=== PATIENT | female | born 2000 | race Caucasian/White ===

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

== ENCOUNTER 2020-12-18 17:39 | Emergency (ER) | payer MEDICAID, OTHER ==
[~2020-12-18] VITALS: Ht 157.5 cm; Wt 116.6 kg
[2020-12-18 17:47] VITALS: BP 145/73
[2020-12-18] MEDS ORDERED: CEPH500T PO (18:33)
[2020-12-18] MEDS ORDERED: ACET-2619 PO (18:33)
[2020-12-18 18:53] VITALS: BP 145/73
== END 2020-12-18 18:53 | disposition home or self-care (01) ==
LOC: MED 17:39
DX: N39.0 Urinary tract infection, site not specified (principal); Z79.899 Other long term (current) drug therapy
CPT/HCPCS: 81002; 81025; 99283

== ENCOUNTER 2021-09-26 08:01 | Emergency (ER) | payer MEDICAID ==
[~2021-09-26] VITALS: Ht 160 cm; Wt 116.1 kg
[~2021-09-26 08:01] MED LIST: ACET-2619 PO; CEPH500T PO
[2021-09-26 08:02] VITALS: BP 139/91
--- NOTE | 2021-09-26 08:09 | NUR ---
PT AMB TO BED 12
--- NOTE | 2021-09-26 08:15 | NUR ---
20 y/o F BIB self from home c/o dysuria since this morning. Patient A&Ox4, ambulatory, states suprapubic pain x 1 week and woke up with dysuria this morning. Patient states no abdominal pain or suprapubic pain at this time. 0/10. Denies fever, chills, urinary symptoms, nausea, vomiting, diarrhea, constipation. Last BM: today, normal. Denies meds prior to arrival. Bed locked in lowest position, side rails x 1. States history of UTI symptoms, reports hydrating with cranberry juice + water throughout the day. PMH/Sx/Meds: Denies NKA
--- NOTE | 2021-09-26 08:21 | NUR ---
Dr. Mahmood is evaluating pt at bedside
[2021-09-26] MEDS ORDERED: cephALEXin 500 MG CAP PO ONE (08:25)
[2021-09-26] MEDS ORDERED: PHENAZOPYRIDINE 100 MG TAB PO ONE (08:25)
[2021-09-26] MEDS ORDERED: cephALEXin 500 MG CAP ONE (08:26)
[2021-09-26] MEDS ORDERED: PHENAZOPYRIDINE 100 MG TAB ONE (08:26)
[2021-09-26] MEDS ORDERED: CEPH-588 PO (08:28)
[2021-09-26] MEDS ORDERED: PYR100 PO (08:28)
[2021-09-26 08:42] LABS: APPEARANCE,URINE CLOUDY (CLEAR); BILIRUBIN,URINE NEGATIVE (NEGATIVE); BLOOD, URINE TRACE-I (NEGATIVE); COLOR,URINE YELLOW (YELLOW); LEUKOCYTE ESTERASE ,URINE 2+ (NEGATIVE); NITRITE, URINE NEGATIVE (NEGATIVE); UGLUCOSE NEGATIVE (NEGATIVE)
[2021-09-26 09:56] LABS: RBC,URINE 0-5 /HPF (0-5)
[2021-09-26 10:10] VITALS: BP 131/87
--- NOTE | 2021-09-26 10:15 | NUR ---
Patient discharged with v/s stable. Written and verbal after care instructions given and explained. Patient alert, oriented and verbalized understanding of instructions. Ambulatory with steady gait. All questions addressed prior to discharge. ID band removed. Patient advised to follow up with PMD. Rx of Keflex, Pyridium given. Patient educated on indication of medication including possible reaction and side effects. Opportunity to ask questions provided and answered.
== END 2021-09-26 10:15 | disposition home or self-care (01) ==
LOC: MED 08:01
DX: N39.0 Urinary tract infection, site not specified (principal); Z79.899 Other long term (current) drug therapy; Z79.2 Long term (current) use of antibiotics
CPT/HCPCS: 81001; 81025; 87086; 99283

== ENCOUNTER 2022-07-21 14:22 | Emergency (ER) | payer MEDICAID ==
[~2022-07-21] VITALS: Ht 157.5 cm; Wt 116.6 kg
[~2022-07-21 14:22] MED LIST changes: +CEPH-588 PO; +PYR100 PO
[2022-07-21 14:25] VITALS: BP 120/67
--- NOTE | 2022-07-21 14:44 | NUR ---
Patient being evaluated by HENRIETTA JENSEN at TRIAGE ROOM.
--- NOTE | 2022-07-21 14:45 | NUR ---
C/O 5/10 MID ABDOMINAL PAIN / BELLY BUTTON PAIN X TODAY.
[2022-07-21] MEDS ORDERED: CEPH-588 PO (14:58)
[2022-07-21] MEDS ORDERED: BACTO TP (14:58)
[2022-07-21 16:17] VITALS: BP 120/67
--- NOTE | 2022-07-21 16:17 | NUR ---
Patient discharged with v/s stable. Written and verbal after care instructions given and explained. Patient alert, oriented and verbalized understanding of instructions. Ambulatory with steady gait. All questions addressed prior to discharge. ID band removed. Patient advised to follow up with PMD. Rx of mupirocin, keflex (sent) given. Patient educated on indication of medication including possible reaction and side effects. Opportunity to ask questions provided and answered. work note given
== END 2022-07-21 16:17 | disposition home or self-care (01) ==
LOC: MED 14:22
DX: P38.9 Omphalitis without hemorrhage (principal)
CPT/HCPCS: 81002; 81025; 99283

== ENCOUNTER 2022-09-10 11:00 | Emergency (ER) | payer MEDICAID ==
[~2022-09-10] VITALS: Ht 157.5 cm; Wt 117.0 kg
[~2022-09-10 11:00] MED LIST changes: +BACTO TP
[2022-09-10 11:11] VITALS: BP 133/79
--- NOTE | 2022-09-10 11:14 | NUR ---
PT AMB TO BED 8.
--- NOTE | 2022-09-10 11:22 | NUR ---
21YO FEMALE PT C/O RUNNY NOSE AND SORE THROAT X3DAYS. REPORTS NEW ONSET xLASTNIGHT OF INTERMITTENT 5/10 R EARACHE W/ PAIN AT MOST WHEN BLOWING NOSE. THROAT AND EAR PRESENT CLEAR/PINK W/O SWELLING , NOTES MILD DIZZINESS -RINGING -DECREASE IN HEARING. STATES MILD RELIEF AFTER TAKING NIGHTQUIL . DENIES N/V/D, CHEST PAIN, SOB, FEVER , CHILLS OR ANYONE SICK AT HOME. PT AAOX4, HOB POSITIONED PER COMFORT. HX:DENIES NKA
[2022-09-10] MEDS ORDERED: IBUP-2213 PO (11:58)
[2022-09-10] MEDS ORDERED: BENZ-300 PO (11:58)
[2022-09-10] MEDS ORDERED: AMOX-999 PO (11:58)
--- NOTE | 2022-09-10 12:06 | NUR ---
Patient discharged with v/s stable. Written and verbal after care instructions FOR [employer] given and explained. Patient alert, oriented and verbalized understanding of instructions. Ambulatory with steady gait. All questions addressed prior to discharge. ID band removed. Patient advised to follow up with PMD. Rx of AMOXICILLIN, BENZOCAINE AND IBUPROFEN given. Opportunity to ask questions provided and answered.
--- NOTE | 2022-09-10 12:07 | NUR ---
The patient's care was reviewed and supervised by Sherrell Reed RN.
== END 2022-09-10 12:06 | disposition home or self-care (01) ==
LOC: MED 11:00
DX: J06.9 Acute upper respiratory infection, unspecified (principal); H66.91 Otitis media, unspecified, right ear
CPT/HCPCS: 99283

== ENCOUNTER 2023-02-07 20:38 | Emergency (ER) | payer MEDICAID ==
[~2023-02-07] VITALS: Ht 157.5 cm; Wt 112.0 kg
[~2023-02-07 20:38] MED LIST changes: +AMOX-999 PO; +BENZ-300 PO; +IBUP-2213 PO
[2023-02-07 21:06] VITALS: BP 114/68
--- NOTE | 2023-02-07 21:18 | NUR ---
PT TAKEN TO BED 8
--- NOTE | 2023-02-07 21:25 | NUR ---
22YR OLD FEMALE BIB SELF C/O RLQ ABD PAIN X TODAY. SHARP 7/10 PAIN. NON RADATING. PT DENIES CP OR SOB . STATES PAIN STARTED TODAY. DENIES V/D. PT IS A&OX4 . NKDA NO MED HX
--- NOTE | 2023-02-07 22:08 | NUR ---
CALL CENTER COORDINATOR AT BEDSIDE
--- NOTE | 2023-02-07 22:31 | NUR ---
Dr. Royal examining patient.
[2023-02-07 22:33] LABS: APPEARANCE,URINE CLEAR (CLEAR); BILIRUBIN,URINE 1+ (NEGATIVE); BLOOD, URINE NEGATIVE (NEGATIVE); COLOR,URINE YELLOW (YELLOW); LEUKOCYTE ESTERASE ,URINE NEGATIVE (NEGATIVE); NITRITE, URINE NEGATIVE (NEGATIVE); PH,URINE 5.5 (5.0-9.0); UGLUCOSE NEGATIVE (NEGATIVE)
--- NOTE | 2023-02-07 22:56 | NUR ---
PT TO CT
--- NOTE | 2023-02-07 22:56 | NUR ---
Juan reyes in [facility] - 02/07/23 at 2314 by MILADY PT TAKEN TO CT
--- NOTE | 2023-02-07 23:08 | NUR ---
PT BACK FROM CT
[2023-02-07 23:20] LABS: BASOPHILS # (AUTO) 0.1 K/uL (0.00-0.22); BASOPHILS % (AUTO) 0.5 % (0.0-2.0); EOSINOPHILS % (AUTO) 0.4 % (0.0-4.0); HEMOGLOBIN 13.4 g/dL (12.0-16.0); LYMPHOCYTES # (AUTO) 2.8 K/uL (2.5-16.5); LYMPHOCYTES % (AUTO) 24.8 % (20.5-51.1); MEAN CORPUSCULAR HEMOGLOBIN 29 pg (27-31); MEAN CORPUSCULAR HGB CONC 34 g/dL (33-37); MEAN CORPUSCULAR VOLUME 87.8 fL (80-94); MONOCYTES # (AUTO) 0.7 K/uL (0.8-1.0); MONOCYTES % (AUTO) 6.4 % (1.7-9.3); NEUTROPHILS # (AUTO) 7.7 K/uL (1.8-7.7); NEUTROPHILS % (AUTO) 67.9 % (42.2-75.2); PLATELET COUNT (AUTO) 407 K/uL (140-450); RED BLOOD CELL COUNT(AUTO) 4.55 MIL/uL (4.20-5.40); WHITE BLOOD COUNT (AUTO) 11.4 K/uL (4.8-10.8)
[2023-02-07 23:35] LABS: ALBUMIN 3.9 g/dL (3.4-5.0); ANION GAP 12.9 (8-16); CREATININE 0.8 mg/dL (0.6-1.3); POTASSIUM 3.9 mmol/L (3.5-5.1); TOTAL BILIRUBIN 0.7 mg/dL (0.0-1.0)
--- NOTE | 2023-02-08 00:08 | NUR ---
DR PRAJAPATI AT BEDSIDE
[2023-02-08] MEDS ORDERED: MAG355OR2 PO (00:24)
[2023-02-08] MEDS ORDERED: IBUP-1842 PO (00:24)
--- NOTE | 2023-02-08 00:30 | NUR ---
Patient discharged with v/s stable. Written and verbal after care instructions given and explained. Patient verbalized understanding. Ambulatory with steady gait. All questions addressed prior to discharge. Advised to follow up with PMD.
== END 2023-02-08 00:30 | disposition home or self-care (01) ==
LOC: MED 20:38
DX: R10.31 Right lower quadrant pain (principal)
CPT/HCPCS: 36415; 80053; 81003; 81025; 83690; 85025; 99284

== ENCOUNTER 2023-06-09 21:27 | Emergency (ER) | payer MEDICAID ==
[~2023-06-09] VITALS: Ht 157.5 cm; Wt 107.0 kg
[~2023-06-09 21:27] MED LIST changes: +IBUP-1842 PO; +MAG355OR2 PO
[2023-06-09 21:34] VITALS: BP 122/57; PULSE 90; RESP 16; TEMP 98.3; O2SAT 99
[2023-06-10] MEDS ORDERED: METR-435 PO (00:58)
[2023-06-10 01:00] VITALS: BP 120/60; PULSE 90; RESP 16; TEMP 98.4; O2SAT 99
== END 2023-06-10 01:00 | disposition home or self-care (01) ==
LOC: MED 21:27
DX: N76.0 Acute vaginitis (principal); B96.89 Other specified bacterial agents as the cause of diseases classified elsewhere; Z79.899 Other long term (current) drug therapy
CPT/HCPCS: 87210; 99281; 99283

== ENCOUNTER 2023-06-24 17:46 | Emergency (ER) | payer MEDICAID ==
[~2023-06-24] VITALS: Ht 157.5 cm; Wt 104.8 kg
[~2023-06-24 17:46] MED LIST changes: +METR-435 PO
[2023-06-24 17:54] VITALS: BP 122/73; PULSE 60; RESP 20; TEMP 97.5; O2SAT 100
[2023-06-24 18:42] LABS: BASOPHILS # (AUTO) 0.1 K/uL (0.00-0.22); BASOPHILS % (AUTO) 0.5 % (0.0-2.0); EOSINOPHILS # (AUTO) 0.1 K/uL (0-0.4); EOSINOPHILS % (AUTO) 1.2 % (0.0-4.0); HEMATOCRIT 41.4 % (36-48); HEMOGLOBIN 13.8 g/dL (12.0-16.0); LYMPHOCYTES % (AUTO) 27.1 % (20.5-51.1); MEAN CORPUSCULAR HEMOGLOBIN 30 pg (27-31); MEAN CORPUSCULAR HGB CONC 33 g/dL (33-37); MEAN CORPUSCULAR VOLUME 89.2 fL (80-94); MONOCYTES # (AUTO) 0.8 K/uL (0.8-1.0); MONOCYTES % (AUTO) 6.8 % (1.7-9.3); NEUTROPHILS # (AUTO) 7.2 K/uL (1.8-7.7); NEUTROPHILS % (AUTO) 64.4 % (42.2-75.2); PLATELET COUNT (AUTO) 388 K/uL (140-450); RED BLOOD CELL COUNT(AUTO) 4.64 MIL/uL (4.20-5.40); RED CELL DISTRIBUTION WIDTH 13.9 % (11.6-13.7); WHITE BLOOD COUNT (AUTO) 11.2 K/uL (4.8-10.8)
[2023-06-24 18:52] LABS: APPEARANCE,URINE CLEAR (CLEAR); BILIRUBIN,URINE NEGATIVE (NEGATIVE); BLOOD, URINE NEGATIVE (NEGATIVE); COLOR,URINE YELLOW (YELLOW); LEUKOCYTE ESTERASE ,URINE 1+ (NEGATIVE); NITRITE, URINE NEGATIVE (NEGATIVE); PROTEIN,URINE NEGATIVE (NEGATIVE); UGLUCOSE NEGATIVE (NEGATIVE); UROBILINOGEN,URINE 0.2 EU/dL (0.2 - 1)
[2023-06-24 19:09] LABS: ALBUMIN 3.9 g/dL (3.4-5.0); ANION GAP 13.4 (8-16); CARBON DIOXIDE 27.3 mmol/L (21-32); CREATININE 0.8 mg/dL (0.6-1.3); POTASSIUM 3.7 mmol/L (3.5-5.1); TOTAL BILIRUBIN 0.7 mg/dL (0.0-1.0); TOTAL PROTEIN, SERUM 8.3 g/dL (6.4-8.2)
[2023-06-24 19:09] LABS: BACTERIA,URINE 10-30 (MOD) /HPF (None Seen); RBC,URINE 0-5 /HPF (0-5); SQUAMOUS EPITHELIAL CELL,UR 4-10 (MOD) /LPF (0-3 (FEW))
[2023-06-24] MEDS ORDERED: ALUMINUM HYD/MAG/SIMETHICONE 30 ML UDC PO ONE (19:20)
[2023-06-24] MEDS ORDERED: FAMOTIDINE 20 MG TAB PO ONE (19:20)
[2023-06-24 19:39] VITALS: O2SAT 100
[2023-06-24] MEDS ORDERED: FAMO-90 PO (20:01)
[2023-06-24] MEDS ORDERED: ALUM355S5 PO (20:01)
[2023-06-24] MEDS ORDERED: SUCR1TAB35 PO (20:01)
== END 2023-06-24 20:23 | disposition home or self-care (01) ==
LOC: MED 17:46
DX: K29.70 Gastritis, unspecified, without bleeding (principal); Z79.899 Other long term (current) drug therapy
CPT/HCPCS: 36415; 76705; 80053; 81001; 81025; 83690; 85025; 87086; 99284; Q0092

== ENCOUNTER 2023-10-29 10:16 | Emergency (ER) | payer MEDICAID, OTHER ==
[~2023-10-29] VITALS: Ht 162.6 cm; Wt 90.7 kg
[~2023-10-29 10:16] MED LIST changes: +FAMO-90 PO; +MAG-43 PO; +SUCR1TAB35 PO
[2023-10-29 10:29] VITALS: BP 118/77; PULSE 84; RESP 18; TEMP 98; O2SAT 98
[2023-10-29 11:17] LABS: APPEARANCE,URINE CLEAR (CLEAR); BILIRUBIN,URINE NEGATIVE (NEGATIVE); BLOOD, URINE NEGATIVE (NEGATIVE); COLOR,URINE YELLOW (YELLOW); LEUKOCYTE ESTERASE ,URINE 1+ (NEGATIVE); NITRITE, URINE NEGATIVE (NEGATIVE); PROTEIN,URINE NEGATIVE (NEGATIVE); UGLUCOSE NEGATIVE (NEGATIVE); UROBILINOGEN,URINE 0.2 EU/dL (0.2 - 1)
[2023-10-29 11:24] LABS: BACTERIA,URINE FEW /HPF (None Seen); RBC,URINE 0-5 /HPF (0-5); SQUAMOUS EPITHELIAL CELL,UR 0-3 (FEW) /LPF (0-3 (FEW)); WBC,URINE 0-5 /HPF (0-5)
[2023-10-29] MEDS ORDERED: NITR50CA1 PO (11:37)
[2023-10-29] MEDS ORDERED: PHEN-1877 PO (11:37)
[2023-10-29 11:42] VITALS: BP 118/77; PULSE 84; RESP 18; TEMP 98; O2SAT 98
[2023-10-29] MEDS ORDERED: TRAM-748 PO ×2 (23:30→23:57)
[2023-10-29] MEDS ORDERED: ONDA-188 PO ×2 (23:30→23:57)
[2023-10-29] MEDS ORDERED: NAPR-54 PO ×2 (23:30→23:57)
== END 2023-10-29 11:42 | disposition home or self-care (01) ==
LOC: MED 10:16
DX: N30.00 Acute cystitis without hematuria (principal); Z79.899 Other long term (current) drug therapy; Z79.1 Long term (current) use of non-steroidal anti-inflammatories (NSAID); Z79.2 Long term (current) use of antibiotics
CPT/HCPCS: 81001; 81025; 87086; 87210; 87491; 99283

== ENCOUNTER 2023-10-29 21:24 | Emergency (ER) | payer OTHER ==
[~2023-10-29] VITALS: Ht 157.5 cm; Wt 104.3 kg
[~2023-10-29 21:24] MED LIST changes: +NITR50CA1 PO; +PHEN-1877 PO
[2023-10-29 21:49] VITALS: BP 100/67; PULSE 95; RESP 19; TEMP 97.9; O2SAT 99
[2023-10-29] MEDS ORDERED: KETOROLAC 30 MG/ML VIAL IM ONE (23:15)
[2023-10-29] MEDS ORDERED: NAPR-54 PO ×2 (23:30→23:57)
[2023-10-29] MEDS ORDERED: ONDA-188 PO ×2 (23:30→23:57)
[2023-10-29] MEDS ORDERED: TRAM-748 PO ×2 (23:30→23:57)
[2023-10-30 00:15] VITALS: BP 122/89; PULSE 93; RESP 18; TEMP 97.9; O2SAT 98
== END 2023-10-30 00:15 | disposition home or self-care (01) ==
LOC: MED 21:24
DX: R30.0 Dysuria (principal); Z79.899 Other long term (current) drug therapy; Z79.1 Long term (current) use of non-steroidal anti-inflammatories (NSAID); Z79.2 Long term (current) use of antibiotics
CPT/HCPCS: 96372; 99283; J1885